=== PATIENT | female | born 2000 | race Hispanic/Latino ===

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

== ENCOUNTER 2019-09-28 12:19 | Emergency (ER) | payer SELFPAY ==
[2019-09-28] MEDS ORDERED: HYDROcodone/Acetaminophen 5/325 mg Tablet ONE (12:35)
--- NOTE | 2019-09-28 13:49 | RAD ---
LEFT KNEE 4 VIEWS: HISTORY: Knee pain. FINDINGS: Joint spaces appear normally maintained. No evidence of fracture. A small joint effusion in the sup rapatellar region is seen. IMPRESSION: Evidence of small joint effusion. No fracture or acute osseous abnormality. POS: OFF
== END 2019-09-28 14:23 | disposition home or self-care (01) ==
LOC: ERS 12:19
DX: M25.562 Pain in left knee (principal); W18.30XA Fall on same level, unspecified, initial encounter

== ENCOUNTER 2020-01-12 20:42 | Emergency (ER) | payer SELFPAY ==
[2020-01-13] MEDS ORDERED: Ketorolac Tromethamine 30 MG/ML VIAL ONE (00:41)
[2020-01-13] MEDS ORDERED: diphenhydrAMINE 50 MG/ML VIAL ONE (00:41)
[2020-01-13] MEDS ORDERED: Metoclopramide HCl 10 MG/2 ML VIAL ONE (00:41)
[2020-01-13] MEDS ORDERED: Ondansetron PF 4 MG/2 ML Vial ONE (00:41)
== END 2020-01-13 03:15 | disposition home or self-care (01) ==
LOC: ERS 20:42
DX: G43.909 Migraine, unspecified, not intractable, without status migrainosus (principal); F32.9 Major depressive disorder, single episode, unspecified
CPT/HCPCS: 96365; 96366; 96375; J1200; J1885; J2405; J2765

== ENCOUNTER 2020-11-22 09:17 | Emergency (ER) | payer SELFPAY ==
[2020-11-22] MEDS ORDERED: Ketorolac Tromethamine 30 MG/ML VIAL ONE (11:08)
== END 2020-11-22 12:36 | disposition home or self-care (01) ==
LOC: ERS 09:17
DX: M79.672 Pain in left foot (principal); G43.909 Migraine, unspecified, not intractable, without status migrainosus; W17.89XA Other fall from one level to another, initial encounter
CPT/HCPCS: 96372; J1885

== ENCOUNTER 2021-02-04 08:06 | Emergency (ER) | payer OTHER, SELFPAY ==
[2021-02-04 13:43] LABS: SARS-CoV-2 PCR by NAA Not Detected (NotDetected)
== END 2021-02-04 09:15 | disposition home or self-care (01) ==
LOC: ERS 08:06
DX: J02.9 Acute pharyngitis, unspecified (principal); Z20.822 Contact with and (suspected) exposure to COVID-19
CPT/HCPCS: 87081; 87430; 87635; 99283; U0003; U0005

== ENCOUNTER 2021-10-31 11:25 | Emergency (ER) | payer SELFPAY ==
[2021-10-31 16:32] LABS: #Basophils 0.1 thou/uL (0.0-0.2); #Eosinphils 0.1 thou/uL (0.0-0.7); #Lymphocytes 3.7 thou/uL (1.20-3.40); #Monocytes 0.6 thou/uL (0.11-0.59); #Neutrophils 6.2 thou/uL (1.40-6.50); %Basophils 0.8 % (0.0-1.0); %Lymphocytes 34.6 % (21.0-51.0); %Monocytes 5.8 % (0.0-10.0); %Neutrophils 57.9 % (42.0-75.0); Hemoglobin 12.2 g/dL (12.0-16.0); Mean Corpuscular HGB CONC 32.9 g/dL (32.0-36.0); Mean Corpuscular Hemoglobin 27.5 pg (27.0-31.0); Mean Corpuscular Volume 83.6 fL (78.0-98.0); Mean Platelet Volume 6.8 fL (7.4-10.4); Platelet Count 320 thou/uL (130-400); RBC Distribution Width 13.5 % (11.5-14.5); Red Blood Cell (RBC) Count 4.44 mill/uL (4.20-5.40); White Blood Cell (WBC) Count 10.6 thou/uL (4.8-10.8)
[2021-10-31 16:54] LABS: ALT (SGPT) 14 U/L (8-55); AST (SGOT) 14 U/L (5-34); Albumin 3.9 g/dL (3.5-5.0); Alkaline Phosphatase 64 U/L (40-110); Anion Gap 12 mmol/L (10-20); BUN (Urea Nitrogen) 5 mg/dL (7.0-18.7); Bilirubin, Total 0.4 mg/dL (0.2-1.2); Calc. Creatinine Clearance 0 mL/min (70-130); Calcium 9.3 mg/dL (7.8-10.44); Carbon Dioxide 24 mmol/L (22-29); Chloride 107 mmol/L (98-107); Globulin 3.4 g/dL (2.4-3.5); Glucose 84 mg/dL (70-105); Potassium 3.7 mmol/L (3.5-5.1); Protein, Total 7.3 g/dL (6.0-8.3); Sodium 139 mmol/L (136-145)
== END 2021-10-31 17:25 | disposition home or self-care (01) ==
LOC: ERS 11:25
DX: R00.2 Palpitations (principal); G43.909 Migraine, unspecified, not intractable, without status migrainosus
CPT/HCPCS: 36415; 80053; 85025; 93005

== ENCOUNTER 2022-12-29 12:59 | Outpatient (CLI) | payer BC | END 2022-12-29 13:00 | disposition home or self-care (01) | LOC: DTY/OP 12:59 | PROVIDERS: ATTEND Surgery | DX: E66.01 Morbid (severe) obesity due to excess calories (principal); Z68.43 Body mass index [BMI] 50.0-59.9, adult; Z71.3 Dietary counseling and surveillance | CPT/HCPCS: 97802 ==

== ENCOUNTER 2023-09-08 18:24 | Emergency (ER) | payer OTHER ==
[2023-09-08 19:27] LABS: Hematocrit 36.9 % (36.0-47.0); Hemoglobin 11.8 g/dL (12.0-16.0); Mean Corpuscular Hemoglobin 25.5 pg (27.0-31.0); Mean Corpuscular Volume 79.9 fl (78.0-98.0); Mean Platelet Volume 9.4 fL (7.4-10.4); Platelet Count 304 10x3/uL (130-400); RBC Distribution Width 15.8 % (11.5-14.5); Red Blood Cell (RBC) Count 4.62 mill/uL (4.20-5.40); White Blood Cell (WBC) Count 11.8 10x3/uL (4.8-10.8)
[2023-09-08 19:30] LABS: Delete Auto Diff?? YES; Manual Diff?? YES
[2023-09-08] MEDS ORDERED: diphenhydrAMINE 50 MG/ML VIAL ONE (19:35)
[2023-09-08] MEDS ORDERED: Metoclopramide HCl 10 MG/2 ML VIAL ONE (19:35)
[2023-09-08] MEDS ORDERED: Ketorolac Tromethamine 30 MG/ML VIAL ONE (19:35)
[2023-09-08] MEDS ORDERED: methylPREDNISolone Sod Succ/PF 125 MG/2 ML VIAL ONE (19:36)
[2023-09-08] MEDS ORDERED: Magnesium 2 GM/50 ML BAG (IN WATER) ONE (19:36)
[2023-09-08 19:39] LABS: BHCG - Serum Negative (NEGATIVE); Pregs Control Background? CLEAR/WHITE (CLR/WHITE); Pregs Control Bar Appear? YES (CONTROL BAR)
[2023-09-08 19:52] LABS: ALT (SGPT) 9 U/L (8-55); AST (SGOT) 10 U/L (5-34); Albumin 4.4 g/dL (3.5-5.0); Alkaline Phosphatase 56 U/L (40-110); Anion Gap 12 mmol/L (10-20); BUN (Urea Nitrogen) 10 mg/dL (7.0-18.7); Bilirubin, Total 0.2 mg/dL (0.2-1.2); Calc. Creatinine Clearance 0 mL/min (70-130); Calcium 9.2 mg/dL (7.8-10.44); Carbon Dioxide 22 mmol/L (22-29); Chloride 109 mmol/L (98-107); Estimated GFR 116; Globulin 3.3 g/dL (2.4-3.5); Glucose 105 mg/dL (70-105); Potassium 3.9 mmol/L (3.5-5.1); Protein, Total 7.7 g/dL (6.0-8.3); Sodium 139 mmol/L (136-145)
[2023-09-08 19:57] LABS: Band 5 % (5-11); CellaVision Operator ID LAB.CLH1; Eosinophils 2 % (0-10); Lymphocytes 35 % (21-51); Neutrophil 58 % (42-75); Platelet Adequacy Comment Platelets Normal; Polychromasia SLIGHT = 2-3 cells HPF (0-2); Total Cell Count 100
== END 2023-09-08 22:57 | disposition home or self-care (01) ==
LOC: ERS 18:24
DX: M54.9 Dorsalgia, unspecified (principal)
CPT/HCPCS: 36415; 80053; 84703; 85025; 86140; 96365; 96367; 96375; J1200; J1885; J2765; J2930; J3475